=== PATIENT | male | born 1940 | race Caucasian/White ===

== ENCOUNTER 2020-05-01 10:04 | Emergency (ER) | payer MEDICARE, MEDICAID ==
[~2020-05-01] VITALS: Ht 172.7 cm; Wt 77.3 kg
[2020-05-01 10:34] LABS: HEMATOCRIT 43.5 % (39.0-50.0); HEMOGLOBIN 13.8 g/dl (14.0-18.0); IMMATURE GRANULOCYTES 0.3 % (0.0-5.0); MEAN CELL VOLUME 95.2 fL CALC (80.0-100.0); MEAN CORPUSCULAR HGB 30.2 pG CALC (26.0-32.0); MEAN CORPUSCULAR HGB CONC 31.7 g/dL CAL (32.0-36.0); NEUT# 7.38 thou/uL (1.82-7.42); RED BLOOD COUNT 4.57 mill/uL (4.70-6.10); RED CELL DISTRI WIDTH 12.8 % (11.5-15.5)
[2020-05-01 10:45] LABS: ANION GAP 13 (6-22 (CALC)); BUN 17 mg/dL (8-23); BUN/CREATININE RATIO 25 (12-20 (CALC)); CARBON DIOXIDE 28 mmol/l (22-30); CHLORIDE 102 mmol/l (95-108); CREATININE 0.7 mg/dL (0.7-1.3); GFR > 60 ML/MIN (>=60 (CALC)); GFR FOR AFR.AMER. > 60 ML/MIN (>=60 (CALC)); POTASSIUM 3.7 mmol/l (3.5-5.1); SODIUM 139 mmol/l (137-146)
[2020-05-01 12:30] VITALS: BP 161/75
== END 2020-05-01 12:30 | disposition left against medical advice (07) ==
LOC: ED 10:04
PROVIDERS: Family Medicine
DX: R07.9 Chest pain, unspecified (principal); I48.91 Unspecified atrial fibrillation; I10 Essential (primary) hypertension; Z91.19 Patient's noncompliance with other medical treatment and regimen; Z20.822 Contact with and (suspected) exposure to COVID-19

== ENCOUNTER 2020-08-31 08:18 | Emergency (ER) | payer MEDICARE, MEDICAID ==
[~2020-08-31] VITALS: Ht 172.7 cm; Wt 77.2 kg
[2020-08-31 08:56] LABS: HEMATOCRIT 31.9 % (39.0-50.0); HEMOGLOBIN 9.9 g/dl (14.0-18.0); IMMATURE GRANULOCYTES 0.3 % (0.0-5.0); MEAN CELL VOLUME 96.4 fL CALC (80.0-100.0); MEAN CORPUSCULAR HGB 29.9 pG CALC (26.0-32.0); NEUT# 5.63 thou/uL (1.82-7.42); RED BLOOD COUNT 3.31 mill/uL (4.70-6.10); RED CELL DISTRI WIDTH 13.2 % (11.5-15.5)
[2020-08-31 09:12] LABS: ALBUMIN 3.8 g/dL (3.2-5.0); ALKALINE PHOSPHATASE 50 u/l (38-126); ANION GAP 8 (6-22 (CALC)); BILIRUBIN, TOTAL 0.4 mg/dL (0.0-1.4); BUN 22 mg/dL (8-23); BUN/CREATININE RATIO 29 (12-20 (CALC)); CARBON DIOXIDE 30 mmol/l (22-30); CHLORIDE 104 mmol/l (95-108); CREATININE 0.8 mg/dL (0.7-1.3); GFR > 60 ML/MIN (>=60 (CALC)); GFR FOR AFR.AMER. > 60 ML/MIN (>=60 (CALC)); POTASSIUM 3.7 mmol/l (3.5-5.1); SGOT/AST 32 u/l (19-48); SODIUM 139 mmol/l (137-146); TOTAL PROTEIN 7.4 g/dL (6.3-8.2)
[2020-08-31 11:08] VITALS: BP 171/81
[2020-09-18] MEDS ORDERED: ELIQUIS5 MG PO (11:43)
[2020-09-18] MEDS ORDERED: CLOPIDOGREL75 MG PO (11:43)
[2020-09-18] MEDS ORDERED: IRON325 M1 (11:43)
[2020-09-18] MEDS ORDERED: LISINOPRIL10 MG PO (11:44)
== END 2020-08-31 11:14 | disposition home or self-care (01) ==
LOC: ED 08:18
PROVIDERS: Family Medicine
DX: K92.1 Melena (principal); D64.9 Anemia, unspecified; I10 Essential (primary) hypertension; I48.91 Unspecified atrial fibrillation; Z86.73 Personal history of transient ischemic attack (TIA), and cerebral infarction without residual deficits
CPT/HCPCS: Q9967

== ENCOUNTER 2021-07-30 09:51 | Observation (INO) | payer MEDICARE, MEDICAID ==
[2021-07-30] VITALS (34 sets, daily range): BP systolic 139–183; BP diastolic 64–107
[~2021-07-30] VITALS: Ht 172.7 cm; Wt 80.0 kg
[~2021-07-30 09:51] MED LIST: CLOPIDOGREL75 MG PO; ELIQUIS5 MG PO; IRON325 M1; LISINOPRIL10 MG PO
[2021-07-30 10:40] LABS: GFR > 60 ML/MIN (>=60 (CALC)); GFR FOR AFR.AMER. > 60 ML/MIN (>=60 (CALC))
[2021-07-30 10:55] LABS: ALBUMIN 4.3 g/dL (3.2-5.0); ALKALINE PHOSPHATASE 61 u/l (38-126); AMYLASE 73 u/l (30-110); ANION GAP 13 (6-22 (CALC)); BILIRUBIN, TOTAL 0.5 mg/dL (0.0-1.4); BUN 15 mg/dL (8-23); BUN/CREATININE RATIO 19 (12-20 (CALC)); CARBON DIOXIDE 26 mmol/l (22-30); CHLORIDE 106 mmol/l (95-108); CREATININE 0.8 mg/dL (0.7-1.3); GFR > 60 ML/MIN (>=60 (CALC)); GFR FOR AFR.AMER. > 60 ML/MIN (>=60 (CALC)); LIPASE 294 u/l (23-300); POTASSIUM 4.2 mmol/l (3.5-5.1); SGOT/AST 42 u/l (19-48); SODIUM 141 mmol/l (137-146); TOTAL PROTEIN 7.6 g/dL (6.3-8.2)
[2021-07-30 11:01] LABS: HEMATOCRIT 33.2 % (39.0-50.0); HEMOGLOBIN 9.7 g/dl (14.0-18.0); IMMATURE GRANULOCYTES 0.2 % (0.0-5.0); MEAN CORPUSCULAR HGB 23.2 pG CALC (26.0-32.0); MEAN CORPUSCULAR HGB CONC 29.2 g/dL CAL (32.0-36.0); NEUT# 6.87 thou/uL (1.82-7.42); RED BLOOD COUNT 4.18 mill/uL (4.70-6.10); RED CELL DISTRI WIDTH 17.8 % (11.5-15.5)
[2021-07-30 11:10] LABS: MEAN CELL VOLUME 79.4 fL CALC (80.0-100.0)
[2021-07-30 13:16] LABS: ACT PARTIAL THROMBO TIME 21.2 SECONDS (20.0-32.5)
[2021-07-31] VITALS (30 sets, daily range): BP systolic 117–183; BP diastolic 68–115
[2021-07-31 04:58] LABS: CHOLESTEROL HDL RATIO 3.3 (<4.4 (CALC)); MAGNESIUM 1.7 mg/dL (1.6-2.3)
[2021-07-31] MEDS ORDERED: LOPRESSOR 550 MG/TAB PO (11:23)
[2021-08-01] VITALS (11 sets, daily range): BP systolic 147–168; BP diastolic 70–98
[2021-08-01 05:21] LABS: HEMATOCRIT 31.9 % (39.0-50.0); HEMOGLOBIN 9.2 g/dl (14.0-18.0); IMMATURE GRANULOCYTES 0.1 % (0.0-5.0); MEAN CELL VOLUME 80.4 fL CALC (80.0-100.0); MEAN CORPUSCULAR HGB 23.2 pG CALC (26.0-32.0); MEAN CORPUSCULAR HGB CONC 28.8 g/dL CAL (32.0-36.0); NEUT# 4.92 thou/uL (1.82-7.42); RED BLOOD COUNT 3.97 mill/uL (4.70-6.10); RED CELL DISTRI WIDTH 17.6 % (11.5-15.5)
[2021-08-01 05:39] LABS: ANION GAP 9 (6-22 (CALC)); BUN 19 mg/dL (8-23); BUN/CREATININE RATIO 26 (12-20 (CALC)); CARBON DIOXIDE 27 mmol/l (22-30); CHLORIDE 105 mmol/l (95-108); CREATININE 0.7 mg/dL (0.7-1.3); GFR > 60 ML/MIN (>=60 (CALC)); GFR FOR AFR.AMER. > 60 ML/MIN (>=60 (CALC)); POTASSIUM 3.8 mmol/l (3.5-5.1); SODIUM 137 mmol/l (137-146)
== END 2021-08-01 09:45 | disposition home or self-care (01) ==
LOC: ED 09:51 → ED-I 11:30 → ED 14:08 → ICU 14:09
PROVIDERS: Internal Medicine; ADMIT Internal Medicine; ATTEND Internal Medicine
DX: I47.1 Supraventricular tachycardia (principal); F10.139 Alcohol abuse with withdrawal, unspecified; D64.9 Anemia, unspecified; I10 Essential (primary) hypertension; I25.2 Old myocardial infarction; Z95.1 Presence of aortocoronary bypass graft; Z95.5 Presence of coronary angioplasty implant and graft; Z95.820 Peripheral vascular angioplasty status with implants and grafts; Z20.822 Contact with and (suspected) exposure to COVID-19
CPT/HCPCS: J2060; Q9967

== ENCOUNTER 2021-09-26 09:02 | Emergency (ER) | payer MEDICARE, MEDICAID ==
[2021-09-26] VITALS (10 sets, daily range): BP systolic 174–208; BP diastolic 91–124
[~2021-09-26] VITALS: Ht 172.7 cm; Wt 87.2 kg
[~2021-09-26 09:02] MED LIST changes: +LOPRESSOR 550 MG/TAB PO
[2021-09-26 09:30] LABS: HEMATOCRIT 35.3 % (39.0-50.0); HEMOGLOBIN 10.1 g/dl (14.0-18.0); IMMATURE GRANULOCYTES 0.1 % (0.0-5.0); MEAN CELL VOLUME 79.7 fL CALC (80.0-100.0); MEAN CORPUSCULAR HGB 22.8 pG CALC (26.0-32.0); MEAN CORPUSCULAR HGB CONC 28.6 g/dL CAL (32.0-36.0); NEUT# 7.67 thou/uL (1.82-7.42); RED BLOOD COUNT 4.43 mill/uL (4.70-6.10); RED CELL DISTRI WIDTH 17.4 % (11.5-15.5)
[2021-09-26 09:54] LABS: ALBUMIN 4.4 g/dL (3.2-5.0); ALKALINE PHOSPHATASE 64 u/l (38-126); ANION GAP 14 (6-22 (CALC)); BILIRUBIN, TOTAL 0.6 mg/dL (0.0-1.4); BUN 15 mg/dL (8-23); BUN/CREATININE RATIO 19 (12-20 (CALC)); CARBON DIOXIDE 26 mmol/l (22-30); CHLORIDE 103 mmol/l (95-108); CREATININE 0.8 mg/dL (0.7-1.3); GFR FOR AFR.AMER. > 60 ML/MIN (>=60 (CALC)); GFR OTHER RACES > 60 ML/MIN (>=60 (CALC)); POTASSIUM 3.6 mmol/l (3.5-5.1); SGOT/AST 27 u/l (19-48); SODIUM 139 mmol/l (137-146); TOTAL PROTEIN 8.2 g/dL (6.3-8.2)
[2021-09-26 10:06] LABS: MYOGLOBIN 36 ng/mL (0 - 121)
[2021-09-26 10:25] LABS: TSH, 3RD GENERATION 1.14 uIU/mL (0.47 - 4.68)
[2021-09-26 11:30] LABS: URINE BILIRUBIN - DIPSTICK NEGATIVE (NEGATIVE); URINE BLOOD DIPSTICK TRACE-INTACT (NEGATIVE); URINE COLOR YELLOW; URINE GLUCOSE - DIPSTICK NEGATIVE (NEGATIVE); URINE KETONE NEGATIVE (NEGATIVE); URINE LEUK ESTERASE NEGATIVE (NEGATIVE); URINE PH 6.5 (4.5-8.0); URINE PROTEIN - DIPSTICK TRACE mg/dL (NEG-TRACE); URINE SPECIFIC GRAVITY 1.025; URINE UROBILINOGEN - DIPSTICK 0.2 E.U./dL (0.2)
[2021-09-26 11:31] LABS: URINE NITRITE - DIPSTICK NEGATIVE (Negative)
== END 2021-09-26 11:18 | disposition left against medical advice (07) ==
LOC: ED 09:02
PROVIDERS: Emergency Medicine
DX: I47.1 Supraventricular tachycardia (principal); F10.10 Alcohol abuse, uncomplicated; I10 Essential (primary) hypertension; Z91.19 Patient's noncompliance with other medical treatment and regimen; Z20.822 Contact with and (suspected) exposure to COVID-19

== ENCOUNTER 2021-11-14 21:40 | Observation (INO) | payer MEDICARE, MEDICAID ==
[~2021-11-14] VITALS: Ht 172.7 cm; Wt 85.4 kg
[2021-11-14] VITALS (8 sets, daily range): BP systolic 126–148; BP diastolic 74–85
[2021-11-14 22:27] LABS: HEMATOCRIT 30.4 % (39.0-50.0); HEMOGLOBIN 8.6 g/dl (14.0-18.0); IMMATURE GRANULOCYTES 0.3 % (0.0-5.0); MEAN CELL VOLUME 78.1 fL CALC (80.0-100.0); MEAN CORPUSCULAR HGB 22.1 pG CALC (26.0-32.0); MEAN CORPUSCULAR HGB CONC 28.3 g/dL CAL (32.0-36.0); NEUT# 5.53 thou/uL (1.82-7.42); RED BLOOD COUNT 3.89 mill/uL (4.70-6.10); RED CELL DISTRI WIDTH 17.6 % (11.5-15.5)
[2021-11-14 22:40] LABS: ALKALINE PHOSPHATASE 73 u/l (38-126); ANION GAP 17 (6-22 (CALC)); BUN 14 mg/dL (8-23); BUN/CREATININE RATIO 17 (12-20 (CALC)); CARBON DIOXIDE 24 mmol/l (22-30); CHLORIDE 104 mmol/l (95-108); CREATININE 0.9 mg/dL (0.7-1.3); GFR FOR AFR.AMER. > 60 ML/MIN (>=60 (CALC)); GFR OTHER RACES > 60 ML/MIN (>=60 (CALC)); POTASSIUM 3.6 mmol/l (3.5-5.1); SGOT/AST 34 u/l (19-48); SODIUM 141 mmol/l (137-146); TOTAL PROTEIN 7.5 g/dL (6.3-8.2)
[2021-11-14 22:41] LABS: BILIRUBIN, TOTAL 0.3 mg/dL (0.0-1.4)
[2021-11-14 22:53] LABS: MYOGLOBIN 36 ng/mL (0 - 121)
[2021-11-15] VITALS (14 sets, daily range): BP systolic 108–190; BP diastolic 70–93
[2021-11-15 06:05] LABS: CHOLESTEROL HDL RATIO 3.7 (<4.4 (CALC))
== END 2021-11-15 12:00 | disposition left against medical advice (07) ==
LOC: ED 21:40 → ED-I 23:11 → ED 23:23 → MS2 23:24
PROVIDERS: Emergency Medicine; ADMIT Internal Medicine; ATTEND Internal Medicine
DX: R07.89 Other chest pain (principal); R79.89 Other specified abnormal findings of blood chemistry; I10 Essential (primary) hypertension; F10.10 Alcohol abuse, uncomplicated; G62.9 Polyneuropathy, unspecified; Z87.891 Personal history of nicotine dependence; Z79.02 Long term (current) use of antithrombotics/antiplatelets; Z79.01 Long term (current) use of anticoagulants; Z20.822 Contact with and (suspected) exposure to COVID-19

== ENCOUNTER 2022-01-11 06:22 | Emergency (ER) | payer MEDICARE, MEDICAID ==
[~2022-01-11] VITALS: Ht 172.7 cm; Wt 79.5 kg
[2022-01-11 07:05] VITALS: BP 157/88
[2022-01-11 07:28] LABS: HEMATOCRIT 32.1 % (39.0-50.0); HEMOGLOBIN 9.3 g/dl (14.0-18.0); IMMATURE GRANULOCYTES 0.1 % (0.0-5.0); MEAN CORPUSCULAR HGB 24.1 pG CALC (26.0-32.0); NEUT# 7.15 thou/uL (1.82-7.42); RED BLOOD COUNT 3.86 mill/uL (4.70-6.10); RED CELL DISTRI WIDTH 25.6 % (11.5-15.5)
[2022-01-11 07:31] VITALS: BP 142/111
[2022-01-11 07:43] LABS: MEAN CELL VOLUME 83.2 fL CALC (80.0-100.0)
[2022-01-11 07:45] LABS: ALBUMIN 4.1 g/dL (3.2-5.0); ALKALINE PHOSPHATASE 66 u/l (38-126); ANION GAP 16 (6-22 (CALC)); BILIRUBIN, TOTAL 0.6 mg/dL (0.0-1.4); BUN 20 mg/dL (8-23); BUN/CREATININE RATIO 27 (12-20 (CALC)); CARBON DIOXIDE 27 mmol/l (22-30); CHLORIDE 102 mmol/l (95-108); CREATININE 0.7 mg/dL (0.7-1.3); GFR FOR AFR.AMER. > 60 ML/MIN (>=60 (CALC)); GFR OTHER RACES > 60 ML/MIN (>=60 (CALC)); POTASSIUM 4.2 mmol/l (3.5-5.1); SGOT/AST 37 u/l (19-48); SODIUM 141 mmol/l (137-146); TOTAL PROTEIN 7.4 g/dL (6.3-8.2)
[2022-01-11 07:51] LABS: PROTHROMBIN TIME 9.9 SECONDS (9.0-12.5)
[2022-01-11 08:01] VITALS: BP 158/99
[2022-01-11 08:31] VITALS: BP 175/95
[2022-01-11 08:38] VITALS: BP 175/95
== END 2022-01-11 08:45 | disposition home or self-care (01) ==
LOC: ED 06:22
PROVIDERS: Family Medicine
DX: K06.9 Disorder of gingiva and edentulous alveolar ridge, unspecified (principal); I10 Essential (primary) hypertension; Z86.718 Personal history of other venous thrombosis and embolism; Z95.5 Presence of coronary angioplasty implant and graft; Z79.01 Long term (current) use of anticoagulants

== ENCOUNTER 2022-01-17 10:31 | Emergency (ER) | payer MEDICARE, MEDICAID ==
[~2022-01-17] VITALS: Ht 172.7 cm; Wt 88.0 kg
[2022-01-17 10:45] VITALS: BP 186/102
[2022-01-17 11:01] VITALS: BP 196/115
[2022-01-17 11:01] LABS: HEMOGLOBIN 9.8 g/dl (14.0-18.0); IMMATURE GRANULOCYTES 0.1 % (0.0-5.0); MEAN CELL VOLUME 86.2 fL CALC (80.0-100.0); MEAN CORPUSCULAR HGB 25.6 pG CALC (26.0-32.0); MEAN CORPUSCULAR HGB CONC 29.7 g/dL CAL (32.0-36.0); NEUT# 7.6 thou/uL (1.82-7.42); RED BLOOD COUNT 3.83 mill/uL (4.70-6.10); RED CELL DISTRI WIDTH 28.3 % (11.5-15.5)
[2022-01-17 11:30] VITALS: BP 192/101
[2022-01-17 11:48] LABS: ALBUMIN 4.3 g/dL (3.2-5.0); ALKALINE PHOSPHATASE 80 u/l (38-126); ANION GAP 13 (6-22 (CALC)); BILIRUBIN, TOTAL 0.5 mg/dL (0.0-1.4); BUN 16 mg/dL (8-23); BUN/CREATININE RATIO 22 (12-20 (CALC)); CARBON DIOXIDE 29 mmol/l (22-30); CHLORIDE 101 mmol/l (95-108); CREATININE 0.7 mg/dL (0.7-1.3); GFR FOR AFR.AMER. > 60 ML/MIN (>=60 (CALC)); GFR OTHER RACES > 60 ML/MIN (>=60 (CALC)); SGOT/AST 36 u/l (19-48); SODIUM 138 mmol/l (137-146); TOTAL PROTEIN 7.7 g/dL (6.3-8.2)
[2022-01-17 12:00] VITALS: BP 191/108
[2022-01-17 12:30] VITALS: BP 169/102
[2022-01-17 15:48] VITALS: BP 169/102
== END 2022-01-17 15:48 | disposition left against medical advice (07) ==
LOC: ED 10:31 → ED-I 14:30 → ED 15:48
PROVIDERS: Family Medicine
DX: R07.9 Chest pain, unspecified (principal); I10 Essential (primary) hypertension; I25.10 Atherosclerotic heart disease of native coronary artery without angina pectoris; I25.2 Old myocardial infarction; D64.9 Anemia, unspecified; Z95.5 Presence of coronary angioplasty implant and graft; Z53.29 Procedure and treatment not carried out because of patient's decision for other reasons
CPT/HCPCS: Q9967

== ENCOUNTER 2022-02-26 08:43 | Emergency (ER) | payer MEDICARE, MEDICAID ==
[~2022-02-26] VITALS: Ht 172.7 cm; Wt 81.0 kg
[2022-02-26] MEDS ORDERED: NALTREXONE50 MG PO (08:57)
[2022-02-26] MEDS ORDERED: SIMVASTATIN10 MG PO (08:57)
[2022-02-26] MEDS ORDERED: BRILINTA90 MG PO (08:57)
[2022-02-26] MEDS ORDERED: BACTRIM DS1 TAB PO (10:03)
[2022-02-26] MEDS ORDERED: CEPHALEXIN500 MG PO (10:03)
[2022-02-26 10:17] VITALS: BP 145/87
== END 2022-02-26 10:35 | disposition home or self-care (01) ==
LOC: ED 08:43
PROC: 0H9EXZZ Drainage of Left Lower Arm Skin, External Approach (ICD-10-PCS; principal; 2022-02-26)
DX: L02.414 Cutaneous abscess of left upper limb (principal); I10 Essential (primary) hypertension; Z95.5 Presence of coronary angioplasty implant and graft

== ENCOUNTER 2022-08-16 12:36 | Emergency (ER) | payer MEDICARE, MEDICAID ==
[~2022-08-16] VITALS: Ht 172.7 cm; Wt 79.3 kg
[~2022-08-16 12:36] MED LIST changes: +BACTRIM DS1 TAB PO; +BRILINTA90 MG PO; +CEPHALEXIN500 MG PO; +NALTREXONE50 MG PO; +SIMVASTATIN10 MG PO
[2022-08-16 12:53] VITALS: BP 137/73
[2022-08-16] MEDS ORDERED: VIBRAMYCIN100 M2 PO (13:36)
[2022-08-16 14:00] VITALS: BP 137/73
== END 2022-08-16 14:01 | disposition home or self-care (01) ==
LOC: ED 12:36
DX: L73.9 Follicular disorder, unspecified (principal); I10 Essential (primary) hypertension

== ENCOUNTER 2022-08-23 10:41 | Emergency (ER) | payer MEDICARE, MEDICAID ==
[~2022-08-23] VITALS: Ht 172.7 cm; Wt 77.0 kg
[~2022-08-23 10:41] MED LIST changes: +VIBRAMYCIN100 M2 PO
[2022-08-23 11:04] VITALS: BP 139/80
[2022-08-23 11:16] VITALS: BP 153/82
[2022-08-23 11:30] VITALS: BP 136/76
[2022-08-23 11:45] VITALS: BP 145/74
[2022-08-23] MEDS ORDERED: ZYRTEC10 MG PO (13:16)
[2022-08-23] MEDS ORDERED: PREDNISONE20 MG PO (13:16)
[2022-08-23] MEDS ORDERED: VIBRAMYCIN100 M2 PO (13:19)
[2022-08-23 13:26] VITALS: BP 145/74
== END 2022-08-23 13:35 | disposition home or self-care (01) ==
LOC: ED 10:41
DX: L73.9 Follicular disorder, unspecified (principal); L50.9 Urticaria, unspecified; M79.89 Other specified soft tissue disorders; I10 Essential (primary) hypertension; M79.605 Pain in left leg

== ENCOUNTER 2022-09-08 09:03 | Emergency (ER) | payer MEDICARE, MEDICAID ==
[~2022-09-08] VITALS: Ht 172.7 cm; Wt 82.0 kg
[~2022-09-08 09:03] MED LIST changes: +PREDNISONE20 MG PO; +ZYRTEC10 MG PO
[2022-09-08 10:00] VITALS: BP 148/78
[2022-09-08 10:15] VITALS: BP 149/84
[2022-09-08 10:30] VITALS: BP 128/87
[2022-09-08 10:45] VITALS: BP 152/82
[2022-09-08] MEDS ORDERED: ALLERGY RELF10 M3 PO (10:49)
[2022-09-08] MEDS ORDERED: DOXY-CAPS100 MG PO (10:49)
[2022-09-08 10:55] VITALS: BP 128/87
== END 2022-09-08 11:00 | disposition home or self-care (01) ==
LOC: ED 09:03
DX: S91.201A Unspecified open wound of right great toe with damage to nail, initial encounter (principal); I10 Essential (primary) hypertension; X58.XXXA Exposure to other specified factors, initial encounter

== ENCOUNTER 2023-03-22 08:20 | Emergency (ER) | payer MEDICARE, MEDICAID ==
[~2023-03-22] VITALS: Ht 172.7 cm; Wt 81.0 kg
[2023-03-22] VITALS (8 sets, daily range): BP systolic 152–179; BP diastolic 66–90
[~2023-03-22 08:20] MED LIST changes: +ALLERGY RELF10 M3 PO; +DOXY-CAPS100 MG PO
[2023-03-22 09:24] LABS: URINE BLOOD DIPSTICK Small (NEGATIVE); URINE COLOR Dark yellow; URINE GLUCOSE - DIPSTICK Negative (NEGATIVE); URINE KETONE Trace mg/dL (NEGATIVE); URINE LEUK ESTERASE Negative (NEGATIVE); URINE NITRITE - DIPSTICK Negative (Negative); URINE PH 5.5 (4.5-8.0); URINE PROTEIN - DIPSTICK >=300 mg/dL (NEG-TRACE); URINE SPECIFIC GRAVITY >=1.030
[2023-03-22 09:35] LABS: URINE WBC 20-50 WBC/hpf (0-5)
[2023-03-22 09:36] LABS: URINE RBC 0-2 RBC/hpf (0-5)
[2023-03-22 09:37] LABS: URINE MUCUS FEW hpf (NONE-FEW)
[2023-03-22] MEDS ORDERED: CEPHALEXIN500 MG PO (10:00)
== END 2023-03-22 10:30 | disposition home or self-care (01) ==
LOC: ED 08:20
PROVIDERS: Emergency Medicine
DX: N39.0 Urinary tract infection, site not specified (principal); I10 Essential (primary) hypertension

== ENCOUNTER 2023-04-14 11:15 | Emergency (ER) | payer MEDICARE, MEDICAID | END 2023-04-14 12:18 | disposition left against medical advice (07) | LOC: ED 11:15 → LWOBS 11:50 → ED 11:50 | DX: Z53.21 Procedure and treatment not carried out due to patient leaving prior to being seen by health care provider (principal) ==

== ENCOUNTER 2023-04-17 10:27 | Emergency (ER) | payer MEDICARE, MEDICAID ==
[~2023-04-17] VITALS: Ht 172.7 cm; Wt 86.1 kg
[2023-04-17 10:49] VITALS: BP 147/74
[2023-04-17 11:00] VITALS: BP 163/104
[2023-04-17] MEDS ORDERED: PREDNISONE50 MG PO (12:06)
[2023-04-17] MEDS ORDERED: ALL DAY10 MG PO (12:06)
[2023-04-17 12:13] VITALS: BP 150/95
== END 2023-04-17 12:18 | disposition home or self-care (01) ==
LOC: ED 10:27
DX: L98.9 Disorder of the skin and subcutaneous tissue, unspecified (principal); L29.9 Pruritus, unspecified; I10 Essential (primary) hypertension

== ENCOUNTER 2023-04-25 10:02 | Emergency (ER) | payer MEDICARE, MEDICAID ==
[~2023-04-25] VITALS: Ht 172.7 cm; Wt 81.6 kg
[~2023-04-25 10:02] MED LIST changes: +ALL DAY10 MG PO; +PREDNISONE50 MG PO
[2023-04-25 10:14] VITALS: BP 158/67
[2023-04-25 10:15] VITALS: BP 147/69
[2023-04-25 10:30] VITALS: BP 134/65
[2023-04-25] MEDS ORDERED: ALL DAY10 MG PO (10:42)
[2023-04-25] MEDS ORDERED: PREDNISONE50 MG PO (10:42)
[2023-04-25 11:05] VITALS: BP 134/65
== END 2023-04-25 11:07 | disposition home or self-care (01) ==
LOC: ED 10:02
DX: T78.40XA Allergy, unspecified, initial encounter (principal); I10 Essential (primary) hypertension; X58.XXXA Exposure to other specified factors, initial encounter